=== PATIENT | female | born 1930 | race Caucasian/White ===

== ENCOUNTER 2017-05-08 06:15 | Inpatient (IN) | payer MEDICARE, BC ==
[2017-05-08] MEDS: NS 1,000 ML IV (07:25)
[2017-05-08] MEDS: ONDANSETRON 4MG/2ML VIAL (J2405) IV (07:43)
[2017-05-08] MEDS: MORPHINE 4 MG/ML 1ML SYRINGE IV ×3 (07:43→17:35)
[2017-05-08 07:55] LABS: BASO # 0.1 10^3/uL (0.0-0.2); BASO % 0.5 % (0.0-1.0); EOS # 0.1 10^3/uL (0.0-0.50); EOS % 0.9 % (0.0-3.0); HEMATOCRIT 28.8 % (36.0-47.0); HEMOGLOBIN 9.7 g/dl (12.0-16.0); IMMATURE GRANULOCYTE # 0.1 10^3/uL (0-0); IMMATURE GRANULOCYTE % 0.8 % (0-0); LYMPH # 1.5 10^3/uL (1.5-4.5); LYMPH % 14.2 % (24.0-44.0); MEAN CORPUSCULAR HEMOGLOBIN 29.8 pg (27.0-33.0); MEAN CORPUSCULAR HGB CONC 33.7 g/dl (32.0-36.5); MEAN CORPUSCULAR VOLUME 88.6 fl (80.0-96.0); MONO # 0.8 10^3/uL (0.0-0.8); MONO % 7.8 % (0.0-5.0); NEUTROPHILS # 7.9 10^3/uL (1.8-7.7); NEUTROPHILS % 75.8 % (36.0-66.0); PLATELET COUNT, AUTOMATED 182 10^3/uL (150-450); RED BLOOD COUNT 3.25 10^6/uL (4.00-5.40); RED CELL DISTRIBUTION WIDTH 12.2 % (11.5-14.5); WHITE BLOOD COUNT 10.4 10^3/uL (4.0-10.0)
[2017-05-08 08:06] LABS: ALBUMIN 3.5 GM/DL (3.2-5.2); ALBUMIN/GLOBULIN RATIO 1.09 (1.00-1.93); ALKALINE PHOSPHATASE 109 U/L (45-117); ALT/SGPT 19 U/L (12-78); ANION GAP 8 MEQ/L (8-16); AST/SGOT 20 U/L (7-37); BILIRUBIN,DIRECT 0.1 MG/DL (0.0-0.2); BILIRUBIN,TOTAL 0.2 MG/DL (0.2-1.0); BLOOD UREA NITROGEN 20 MG/DL (7-18); CALCIUM LEVEL 8.9 MG/DL (8.8-10.2); CARBON DIOXIDE LEVEL 26 MEQ/L (21-32); CHLORIDE LEVEL 102 MEQ/L (98-107); CREATININE FOR GFR 0.98 MG/DL (0.55-1.02); GLUCOSE, FASTING 138 MG/DL (83-110); POTASSIUM SERUM 4.5 MEQ/L (3.5-5.1); SODIUM LEVEL 136 MEQ/L (136-145); TOTAL PROTEIN 6.7 GM/DL (6.4-8.2)
[2017-05-08 08:39] LABS: INR 0.99; PARTIAL THROMBOPLASTIN TIME 27.1 SECONDS (26.8-37.9); PROTHROMBIN TIME 13.2 SECONDS (12.4-14.5)
[2017-05-08] MEDS: MORPHINE 2 MG/ML 1ML SYRINGE IV ×2 (08:41→09:33)
[2017-05-08] MEDS: ACETAMINOPHEN 500 MG TAB PO ×2 (09:00→23:12)
[2017-05-08] MEDS: amLODIPine 5 MG TAB PO (09:00)
[2017-05-08] MEDS: D5W/0.45% SODIUM CHLORIDE 1,000 ML IV ×3 (11:00→23:12)
[2017-05-08] MEDS ORDERED: PROPOFOL 200 MG/20 ML VIAL As Ordered ×2 (18:22→19:29)
[2017-05-08] MEDS ORDERED: LIDOCAINE 2% INJ 100 MG/5 ML SDV (FOR ANES.) As Ordered (18:22)
[2017-05-08] MEDS ORDERED: ONDANSETRON 4MG/2ML VIAL (J2405) As Ordered (18:22)
[2017-05-08] MEDS ORDERED: dexameTHASONE 4 MG/ML 1ML VIAL (J1100) As Ordered (18:22)
[2017-05-08] MEDS ORDERED: PHENYLephrine HCL 500 MCG/5 ML (100MCG/ML) SYRINGE (J2370) As Ordered ×2 (18:23→19:21)
[2017-05-08] MEDS ORDERED: MIDAZOLAM INJ 2 MG/2 ML VIAL (J2250) As Ordered (18:23)
[2017-05-08] MEDS ORDERED: fentaNYL 100 MCG/2 ML INJECTION (J3010) As Ordered (18:23)
[2017-05-08] MEDS ORDERED: KETAMINE HCL 200 MG/20 ML VIAL As Ordered (18:48)
[2017-05-08] MEDS: ceFAZolin 1GM INJ (J0690 PER 500MG) As Ordered (19:13)
[2017-05-08] MEDS ORDERED: amLODIPine 5 MG TAB PO (21:00)
[2017-05-08] MEDS ORDERED: ONDANSETRON 4MG/2ML VIAL (J2405) IV (21:15)
[2017-05-08] MEDS ORDERED: fentaNYL 100 MCG/2 ML INJECTION (J3010) IV (21:15)
[2017-05-08] MEDS: LR 1,000 ML IV (21:15)
[2017-05-08] MEDS: WARFARIN SOD 5 MG TAB PO (23:11)
[2017-05-09] MEDS ORDERED: D5W/0.45% SODIUM CHLORIDE 1,000 ML IV
[2017-05-09] MEDS: MORPHINE 4 MG/ML 1ML SYRINGE IV ×3 (01:45→09:32)
[2017-05-09 05:57] LABS: BASO # 0.1 10^3/uL (0.0-0.2); BASO % 0.6 % (0.0-1.0); EOS # 0.2 10^3/uL (0.0-0.50); EOS % 1.5 % (0.0-3.0); HEMATOCRIT 27.8 % (36.0-47.0); HEMOGLOBIN 9.1 g/dl (12.0-16.0); IMMATURE GRANULOCYTE % 0.3 % (0-0); LYMPH # 4.2 10^3/uL (1.5-4.5); LYMPH % 36.3 % (24.0-44.0); MEAN CORPUSCULAR HEMOGLOBIN 29.3 pg (27.0-33.0); MEAN CORPUSCULAR HGB CONC 32.7 g/dl (32.0-36.5); MEAN CORPUSCULAR VOLUME 89.4 fl (80.0-96.0); MONO # 1.5 10^3/uL (0.0-0.8); MONO % 13.1 % (0.0-5.0); NEUTROPHILS # 5.6 10^3/uL (1.8-7.7); NEUTROPHILS % 48.2 % (36.0-66.0); PLATELET COUNT, AUTOMATED 182 10^3/uL (150-450); RED BLOOD COUNT 3.11 10^6/uL (4.00-5.40); RED CELL DISTRIBUTION WIDTH 12.5 % (11.5-14.5); WHITE BLOOD COUNT 11.6 10^3/uL (4.0-10.0)
[2017-05-09 06:12] LABS: BLOOD UREA NITROGEN 20 MG/DL (7-18); CARBON DIOXIDE LEVEL 26 MEQ/L (21-32); CHLORIDE LEVEL 103 MEQ/L (98-107); CREATININE FOR GFR 1.04 MG/DL (0.55-1.02); GLUCOSE, FASTING 137 MG/DL (83-110); POTASSIUM SERUM 4.6 MEQ/L (3.5-5.1); SODIUM LEVEL 135 MEQ/L (136-145)
[2017-05-09 06:19] LABS: CALCIUM LEVEL 7.7 MG/DL (8.8-10.2)
[2017-05-09 07:56] LABS: ANION GAP 6 MEQ/L (8-16)
[2017-05-09] MEDS: SERTRALINE HCL 25 MG TABLET PO (09:31)
[2017-05-09] MEDS: SENOKOT S TAB PO ×2 (10:41→20:40)
[2017-05-09] MEDS: MOM 30ML SUSPENSION UDC PO (10:41)
[2017-05-09] MEDS: ACETAMINOPHEN 500 MG TAB PO ×2 (10:41→20:41)
[2017-05-09] MEDS: MIRALAX *UNIT DOSE* 17GM PACKET PO ×2 (10:41→10:52)
[2017-05-09] MEDS: NYSTATIN 100,000 UNITS/GM TOPICAL PWD 15 GM TOP ×2 (10:42→20:42)
[2017-05-09] MEDS: WARFARIN SOD 5 MG TAB PO (17:46)
[2017-05-09] MEDS: NS 1,000 ML IV (17:46)
[2017-05-10] MEDS ORDERED: SODIUM CHLORIDE 0.9% 1000 ML IV (06:30)
[2017-05-10] MEDS ORDERED: SODIUM CHLORIDE 0.9% 500 ML IV (06:30)
[2017-05-10 07:20] LABS: BASO # 0.1 10^3/uL (0.0-0.2); BASO % 0.7 % (0.0-1.0); EOS # 0.5 10^3/uL (0.0-0.50); HEMATOCRIT 28.3 % (36.0-47.0); HEMOGLOBIN 9.3 g/dl (12.0-16.0); IMMATURE GRANULOCYTE % 0.3 % (0-0); LYMPH % 21.1 % (24.0-44.0); MEAN CORPUSCULAR HEMOGLOBIN 29.5 pg (27.0-33.0); MEAN CORPUSCULAR HGB CONC 32.9 g/dl (32.0-36.5); MEAN CORPUSCULAR VOLUME 89.8 fl (80.0-96.0); MONO # 1.1 10^3/uL (0.0-0.8); MONO % 11.9 % (0.0-5.0); NEUTROPHILS # 5.9 10^3/uL (1.8-7.7); PLATELET COUNT, AUTOMATED 158 10^3/uL (150-450); RED BLOOD COUNT 3.15 10^6/uL (4.00-5.40); RED CELL DISTRIBUTION WIDTH 12.4 % (11.5-14.5); WHITE BLOOD COUNT 9.6 10^3/uL (4.0-10.0)
[2017-05-10 07:48] LABS: INR 1.35
[2017-05-10] MEDS: ACETAMINOPHEN 500 MG TAB PO ×2 (08:37→22:05)
[2017-05-10] MEDS: SERTRALINE HCL 25 MG TABLET PO (08:37)
[2017-05-10] MEDS: MIRALAX *UNIT DOSE* 17GM PACKET PO (08:37)
[2017-05-10] MEDS: SENOKOT S TAB PO ×2 (08:37→22:05)
[2017-05-10] MEDS: MOM 30ML SUSPENSION UDC PO (08:37)
[2017-05-10] MEDS: NYSTATIN 100,000 UNITS/GM TOPICAL PWD 15 GM TOP ×2 (08:38→22:05)
[2017-05-10 09:19] LABS: ANION GAP 8 MEQ/L (8-16); BLOOD UREA NITROGEN 23 MG/DL (7-18); CARBON DIOXIDE LEVEL 24 MEQ/L (21-32); CHLORIDE LEVEL 102 MEQ/L (98-107); CREATININE FOR GFR 1.12 MG/DL (0.55-1.02); GLOMERULAR FILTRATION RATE 48.9 (>32); GLUCOSE, FASTING 113 MG/DL (83-110); POTASSIUM SERUM 4.3 MEQ/L (3.5-5.1); SODIUM LEVEL 134 MEQ/L (136-145)
[2017-05-10] MEDS: ACETAMINOPHEN TAB 650MG DOSE (2X325MG) PO (12:57)
[2017-05-10] MEDS: traMADol 50 MG TAB PO (14:17)
[2017-05-10] MEDS: WARFARIN SOD 4 MG TAB PO (16:31)
[2017-05-11] MEDS: ACETAMINOPHEN TAB 650MG DOSE (2X325MG) PO (03:25)
[2017-05-11 07:09] LABS: BASO # 0.1 10^3/uL (0.0-0.2); BASO % 0.6 % (0.0-1.0); EOS # 0.1 10^3/uL (0.0-0.50); EOS % 1.3 % (0.0-3.0); HEMATOCRIT 25.6 % (36.0-47.0); HEMOGLOBIN 8.7 g/dl (12.0-16.0); IMMATURE GRANULOCYTE # 0.1 10^3/uL (0-0); IMMATURE GRANULOCYTE % 0.5 % (0-0); LYMPH # 3.2 10^3/uL (1.5-4.5); LYMPH % 29.6 % (24.0-44.0); MEAN CORPUSCULAR HEMOGLOBIN 29.1 pg (27.0-33.0); MEAN CORPUSCULAR VOLUME 85.6 fl (80.0-96.0); MONO # 1.2 10^3/uL (0.0-0.8); NEUTROPHILS # 6.2 10^3/uL (1.8-7.7); PLATELET COUNT, AUTOMATED 215 10^3/uL (150-450); RED BLOOD COUNT 2.99 10^6/uL (4.00-5.40); RED CELL DISTRIBUTION WIDTH 12.3 % (11.5-14.5); WHITE BLOOD COUNT 10.9 10^3/uL (4.0-10.0)
[2017-05-11 07:16] LABS: INR 1.74; PROTHROMBIN TIME 20.9 SECONDS (12.4-14.5)
[2017-05-11 07:24] LABS: ANION GAP 7 MEQ/L (8-16); BLOOD UREA NITROGEN 22 MG/DL (7-18); CALCIUM LEVEL 8.3 MG/DL (8.8-10.2); CARBON DIOXIDE LEVEL 26 MEQ/L (21-32); CHLORIDE LEVEL 102 MEQ/L (98-107); CREATININE FOR GFR 0.91 MG/DL (0.55-1.02); GLOMERULAR FILTRATION RATE > 60.0 (>32); GLUCOSE, FASTING 112 MG/DL (83-110); POTASSIUM SERUM 4.4 MEQ/L (3.5-5.1); SODIUM LEVEL 135 MEQ/L (136-145)
[2017-05-11] MEDS: ACETAMINOPHEN 500 MG TAB PO ×2 (08:29→20:17)
[2017-05-11] MEDS: SENOKOT S TAB PO ×2 (08:29→20:17)
[2017-05-11] MEDS: MOM 30ML SUSPENSION UDC PO (08:30)
[2017-05-11] MEDS: SERTRALINE HCL 25 MG TABLET PO (08:30)
[2017-05-11] MEDS: MIRALAX *UNIT DOSE* 17GM PACKET PO (08:30)
[2017-05-11] MEDS: NYSTATIN 100,000 UNITS/GM TOPICAL PWD 15 GM TOP ×2 (08:30→20:18)
[2017-05-11] MEDS: WARFARIN SOD 2.5 MG TAB PO (16:14)
[2017-05-12] MEDS: traMADol 50 MG TAB PO ×2 (04:24→23:36)
[2017-05-12 07:44] LABS: BASO # 0.1 10^3/uL (0.0-0.2); BASO % 0.9 % (0.0-1.0); EOS # 0.2 10^3/uL (0.0-0.50); HEMOGLOBIN 8.9 g/dl (12.0-16.0); IMMATURE GRANULOCYTE # 0.1 10^3/uL (0-0); IMMATURE GRANULOCYTE % 0.6 % (0-0); LYMPH # 2.6 10^3/uL (1.5-4.5); LYMPH % 25.1 % (24.0-44.0); MEAN CORPUSCULAR HEMOGLOBIN 29.6 pg (27.0-33.0); MEAN CORPUSCULAR HGB CONC 34.2 g/dl (32.0-36.5); MEAN CORPUSCULAR VOLUME 86.4 fl (80.0-96.0); MONO # 1.3 10^3/uL (0.0-0.8); NEUTROPHILS % 58.4 % (36.0-66.0); PLATELET COUNT, AUTOMATED 300 10^3/uL (150-450); RED BLOOD COUNT 3.01 10^6/uL (4.00-5.40); RED CELL DISTRIBUTION WIDTH 12.4 % (11.5-14.5); WHITE BLOOD COUNT 10.2 10^3/uL (4.0-10.0)
[2017-05-12 07:59] LABS: ANION GAP 8 MEQ/L (8-16); BLOOD UREA NITROGEN 19 MG/DL (7-18); CALCIUM LEVEL 8.1 MG/DL (8.8-10.2); CARBON DIOXIDE LEVEL 24 MEQ/L (21-32); CHLORIDE LEVEL 104 MEQ/L (98-107); CREATININE FOR GFR 0.81 MG/DL (0.55-1.02); GLOMERULAR FILTRATION RATE > 60.0 (>32); GLUCOSE, FASTING 114 MG/DL (83-110); INR 1.99; POTASSIUM SERUM 4.3 MEQ/L (3.5-5.1); PROTHROMBIN TIME 23.2 SECONDS (12.4-14.5); SODIUM LEVEL 136 MEQ/L (136-145)
[2017-05-12] MEDS: MIRALAX *UNIT DOSE* 17GM PACKET PO (08:43)
[2017-05-12] MEDS: SENOKOT S TAB PO ×2 (08:43→21:53)
[2017-05-12] MEDS: ACETAMINOPHEN 500 MG TAB PO ×2 (08:43→21:54)
[2017-05-12] MEDS: NYSTATIN 100,000 UNITS/GM TOPICAL PWD 15 GM TOP ×2 (08:44→21:54)
[2017-05-12] MEDS: MOM 30ML SUSPENSION UDC PO (08:44)
[2017-05-13] MEDS: ACETAMINOPHEN TAB 650MG DOSE (2X325MG) PO ×2 (03:16→13:20)
[2017-05-13 07:09] LABS: BASO # 0.1 10^3/uL (0.0-0.2); BASO % 1.6 % (0.0-1.0); EOS # 0.4 10^3/uL (0.0-0.50); EOS % 4.7 % (0.0-3.0); HEMATOCRIT 25.9 % (36.0-47.0); HEMOGLOBIN 8.7 g/dl (12.0-16.0); IMMATURE GRANULOCYTE # 0.1 10^3/uL (0-0); IMMATURE GRANULOCYTE % 0.6 % (0-0); LYMPH % 33.5 % (24.0-44.0); MEAN CORPUSCULAR HEMOGLOBIN 29.5 pg (27.0-33.0); MEAN CORPUSCULAR HGB CONC 33.6 g/dl (32.0-36.5); MEAN CORPUSCULAR VOLUME 87.8 fl (80.0-96.0); MONO # 1.2 10^3/uL (0.0-0.8); MONO % 13.2 % (0.0-5.0); NEUTROPHILS # 4.2 10^3/uL (1.8-7.7); NEUTROPHILS % 46.4 % (36.0-66.0); PLATELET COUNT, AUTOMATED 311 10^3/uL (150-450); RED BLOOD COUNT 2.95 10^6/uL (4.00-5.40); RED CELL DISTRIBUTION WIDTH 12.6 % (11.5-14.5)
[2017-05-13 07:29] LABS: ANION GAP 6 MEQ/L (8-16); BLOOD UREA NITROGEN 21 MG/DL (7-18); CARBON DIOXIDE LEVEL 27 MEQ/L (21-32); CHLORIDE LEVEL 104 MEQ/L (98-107); CREATININE FOR GFR 0.81 MG/DL (0.55-1.02); GLOMERULAR FILTRATION RATE > 60.0 (>32); GLUCOSE, FASTING 95 MG/DL (83-110); POTASSIUM SERUM 4.2 MEQ/L (3.5-5.1); SODIUM LEVEL 137 MEQ/L (136-145)
[2017-05-13] MEDS: MIRALAX *UNIT DOSE* 17GM PACKET PO (09:00)
[2017-05-13] MEDS: MOM 30ML SUSPENSION UDC PO (09:00)
[2017-05-13] MEDS: SENOKOT S TAB PO ×2 (09:55→20:40)
[2017-05-13] MEDS: ACETAMINOPHEN 500 MG TAB PO ×2 (09:56→20:41)
[2017-05-13] MEDS: NYSTATIN 100,000 UNITS/GM TOPICAL PWD 15 GM TOP ×2 (09:56→20:41)
[2017-05-13] MEDS: WARFARIN SOD 2.5 MG TAB PO (17:18)
[2017-05-14] MEDS: ACETAMINOPHEN TAB 650MG DOSE (2X325MG) PO ×2 (00:36→14:06)
[2017-05-14 07:07] LABS: INR 2.24; PROTHROMBIN TIME 25.6 SECONDS (12.4-14.5)
[2017-05-14] MEDS: MIRALAX *UNIT DOSE* 17GM PACKET PO (09:00)
[2017-05-14] MEDS: MOM 30ML SUSPENSION UDC PO (09:00)
[2017-05-14] MEDS: NYSTATIN 100,000 UNITS/GM TOPICAL PWD 15 GM TOP ×2 (09:00→20:23)
[2017-05-14] MEDS: ACETAMINOPHEN 500 MG TAB PO ×2 (09:33→20:22)
[2017-05-14] MEDS: SENOKOT S TAB PO ×2 (09:33→20:21)
[2017-05-15 07:24] LABS: INR 1.95; PROTHROMBIN TIME 22.9 SECONDS (12.4-14.5)
[2017-05-15] MEDS: NYSTATIN 100,000 UNITS/GM TOPICAL PWD 15 GM TOP ×2 (09:00→20:55)
[2017-05-15] MEDS: SENOKOT S TAB PO ×3 (09:00→20:56)
[2017-05-15] MEDS: MIRALAX *UNIT DOSE* 17GM PACKET PO (09:00)
[2017-05-15] MEDS: MOM 30ML SUSPENSION UDC PO (09:00)
[2017-05-15] MEDS: ACETAMINOPHEN 500 MG TAB PO ×4 (09:23→20:58)
[2017-05-16 07:09] LABS: INR 1.63; PROTHROMBIN TIME 19.8 SECONDS (12.4-14.5)
[2017-05-16 07:34] LABS: BASO # 0.1 10^3/uL (0.0-0.2); EOS # 0.4 10^3/uL (0.0-0.50); EOS % 3.9 % (0.0-3.0); HEMATOCRIT 27.5 % (36.0-47.0); IMMATURE GRANULOCYTE # 0.1 10^3/uL (0-0); IMMATURE GRANULOCYTE % 1.2 % (0-0); LYMPH # 2.5 10^3/uL (1.5-4.5); MEAN CORPUSCULAR HGB CONC 32.7 g/dl (32.0-36.5); MEAN CORPUSCULAR VOLUME 88.7 fl (80.0-96.0); MONO # 0.9 10^3/uL (0.0-0.8); MONO % 10.3 % (0.0-5.0); NEUTROPHILS % 55.6 % (36.0-66.0); PLATELET COUNT, AUTOMATED 430 10^3/uL (150-450); RED CELL DISTRIBUTION WIDTH 13.1 % (11.5-14.5)
[2017-05-16 07:39] LABS: ANION GAP 7 MEQ/L (8-16); BLOOD UREA NITROGEN 18 MG/DL (7-18); CARBON DIOXIDE LEVEL 27 MEQ/L (21-32); CHLORIDE LEVEL 106 MEQ/L (98-107); CREATININE FOR GFR 0.75 MG/DL (0.55-1.02); GLOMERULAR FILTRATION RATE > 60.0 (>32); GLUCOSE, FASTING 121 MG/DL (83-110); SODIUM LEVEL 140 MEQ/L (136-145)
[2017-05-16] MEDS: MIRALAX *UNIT DOSE* 17GM PACKET PO (08:56)
[2017-05-16] MEDS: ACETAMINOPHEN 500 MG TAB PO ×2 (08:56→20:03)
[2017-05-16] MEDS: SENOKOT S TAB PO ×2 (08:57→20:03)
[2017-05-16] MEDS: MOM 30ML SUSPENSION UDC PO (08:57)
[2017-05-16] MEDS: NYSTATIN 100,000 UNITS/GM TOPICAL PWD 15 GM TOP ×2 (08:57→20:04)
[2017-05-17 06:45] LABS: INR 1.26
[2017-05-17] MEDS: ACETAMINOPHEN 500 MG TAB PO ×2 (08:34→21:56)
[2017-05-17] MEDS: MOM 30ML SUSPENSION UDC PO (08:34)
[2017-05-17] MEDS: SENOKOT S TAB PO ×2 (08:34→21:55)
[2017-05-17] MEDS: MIRALAX *UNIT DOSE* 17GM PACKET PO (08:34)
[2017-05-17] MEDS: NYSTATIN 100,000 UNITS/GM TOPICAL PWD 15 GM TOP ×2 (08:35→21:56)
[2017-05-18 07:13] LABS: HEMATOCRIT 27.5 % (36.0-47.0); HEMOGLOBIN 9.1 g/dl (12.0-16.0); MEAN CORPUSCULAR HEMOGLOBIN 29.5 pg (27.0-33.0); MEAN CORPUSCULAR HGB CONC 33.1 g/dl (32.0-36.5); MEAN CORPUSCULAR VOLUME 89.3 fl (80.0-96.0); PLATELET COUNT, AUTOMATED 422 10^3/uL (150-450); RED BLOOD COUNT 3.08 10^6/uL (4.00-5.40); RED CELL DISTRIBUTION WIDTH 13.3 % (11.5-14.5); WHITE BLOOD COUNT 10.3 10^3/uL (4.0-10.0)
[2017-05-18 07:20] LABS: INR 1.19; PROTHROMBIN TIME 15.3 SECONDS (12.4-14.5)
[2017-05-18 07:28] LABS: ANION GAP 9 MEQ/L (8-16); BLOOD UREA NITROGEN 19 MG/DL (7-18); CALCIUM LEVEL 8.4 MG/DL (8.8-10.2); CARBON DIOXIDE LEVEL 24 MEQ/L (21-32); CHLORIDE LEVEL 106 MEQ/L (98-107); CREATININE FOR GFR 0.72 MG/DL (0.55-1.02); GLOMERULAR FILTRATION RATE > 60.0 (>32); GLUCOSE, FASTING 113 MG/DL (83-110); POTASSIUM SERUM 4.2 MEQ/L (3.5-5.1); SODIUM LEVEL 139 MEQ/L (136-145)
[2017-05-18] MEDS: ACETAMINOPHEN 500 MG TAB PO ×2 (08:49→21:46)
[2017-05-18] MEDS: NYSTATIN 100,000 UNITS/GM TOPICAL PWD 15 GM TOP ×2 (08:50→21:47)
[2017-05-18] MEDS: MIRALAX *UNIT DOSE* 17GM PACKET PO (08:50)
[2017-05-18] MEDS: SENOKOT S TAB PO ×2 (08:50→21:00)
[2017-05-18] MEDS: MOM 30ML SUSPENSION UDC PO (08:50)
[2017-05-19 07:21] LABS: INR 1.18; PROTHROMBIN TIME 15.2 SECONDS (12.4-14.5)
[2017-05-19] MEDS: ACETAMINOPHEN 500 MG TAB PO ×2 (09:00→20:14)
[2017-05-19] MEDS: NYSTATIN 100,000 UNITS/GM TOPICAL PWD 15 GM TOP ×2 (09:00→20:14)
[2017-05-19] MEDS: SENOKOT S TAB PO ×2 (09:00→20:14)
[2017-05-19] MEDS: MIRALAX *UNIT DOSE* 17GM PACKET PO (09:00)
[2017-05-19] MEDS: MOM 30ML SUSPENSION UDC PO (09:00)
[2017-05-19] MEDS: WARFARIN SOD 5 MG TAB PO (17:13)
[2017-05-20] MEDS: MOM 30ML SUSPENSION UDC PO (07:29)
[2017-05-20] MEDS: MIRALAX *UNIT DOSE* 17GM PACKET PO (07:30)
[2017-05-20] MEDS: SENOKOT S TAB PO (07:30)
[2017-05-20 07:48] LABS: PROTHROMBIN TIME 15.4 SECONDS (12.4-14.5)
[2017-05-20] MEDS: NYSTATIN 100,000 UNITS/GM TOPICAL PWD 15 GM TOP (08:46)
[2017-05-20] MEDS: ACETAMINOPHEN 500 MG TAB PO (08:46)
[2017-05-20] MEDS: ACETAMINOPHEN TAB 650MG DOSE (2X325MG) PO (11:39)
== END 2017-05-20 12:06 | disposition home health service (06) | DRG 481 ==
LOC: M ED 06:15 → M ED INP 08:11 → M MS5PR 11:30
PROC: 0QS604Z Reposition Right Upper Femur with Internal Fixation Device, Open Approach (ICD-10-PCS; principal; 2017-05-08 10:40)
DX: S72.141A Displaced intertrochanteric fracture of right femur, initial encounter for closed fracture (principal); F05 Delirium due to known physiological condition; W19.XXXA Unspecified fall, initial encounter; Y92.013 Bedroom of single-family (private) house as the place of occurrence of the external cause; M81.0 Age-related osteoporosis without current pathological fracture; G25.81 Restless legs syndrome; E66.9 Obesity, unspecified; Z66 Do not resuscitate; F03.90 Unspecified dementia, unspecified severity, without behavioral disturbance, psychotic disturbance, mood disturbance, and anxiety; I10 Essential (primary) hypertension; E86.0 Dehydration; Z88.2 Allergy status to sulfonamides; Z79.899 Other long term (current) drug therapy; Z87.891 Personal history of nicotine dependence; Z95.0 Presence of cardiac pacemaker